=== PATIENT | female | born 1955 | race Caucasian/White ===

== ENCOUNTER → 2021-11-15 07:58 | Outpatient (CLI) | payer OTHER, SELFPAY ==
--- NOTE | ~2021-11-15 | US_ITS ---
EXAMINATION: US abdomen complete EXAM DATE: 11/15/2021 08:39 INDICATION: Epigastric and RUQ abdominal pain . TECHNIQUE: Multiple grayscale and Doppler images of the complete abdomen were obtained (by a technolo gist who performed the scan) and subsequently reviewed. Comparison is made to prior examination from 07/10/2014. FINDINGS: The abdominal aorta is normal in caliber. Visualized portion IVC is patent. The pancreatic head a nd body are normal in appearance. The pancreatic tail is not visualized. There is echogenic liver parenchyma, hepatic steatosis. There are no focal liver lesions identified. There is no evidence of intrahepatic biliary duct dilation. Portal venous flow was seen in the he patopedal, normal direction and has normal Doppler waveform. Common bile duct measures 4 mm, which is normal. The gallbladder wall is normal in thickness, with ex pected amount of distention. No sonographic evidence of pericholecystic fluid. Probable small poorl y calcified cholelithiasis. Technologist performing exam reports patient did not demonstrate sonogra phic Melo's sign. Please note that this sign is less reliable in patients who have received pain m edication. Right kidney: There is normal contour and echogenicity. It measures 9.8 x 3.8 x 4.9 centimeters. T here are no focal renal lesions identified. There is no hydronephrosis. Left kidney: There is normal contour and echogenicity. It measures 10.9 x 4.7 x 4.5 centimeters. T here are no focal renal lesions identified. There is no hydronephrosis. The spleen measures 8.4 centimeters and is morphologically normal. IMPRESSION: 1. Hepatic steatosis. 2. Probable cholelithiasis. Reviewed, dictated and finalized at location A. STICS SOLUTION MANAGER
== END ==
PROVIDERS: PCP Family Medicine Adolescent Medicine; Visit Provider Family Medicine Adolescent Medicine
DX: R10.13 Epigastric pain (principal); K76.0 Fatty (change of) liver, not elsewhere classified
CPT/HCPCS: 76700

== ENCOUNTER 2021-11-23 08:07 | Outpatient (CLI) | payer OTHER, SELFPAY ==
--- NOTE | ~2021-11-23 | NM_ITS ---
EXAMINATION: NM hepatobiliary wo pharm DATE: 11/23/2021 13:31 INDICATION: Right upper quadrant abdominal pain COMPARISON: Ultrasound dated 11/07/2021 TECHNIQUE: 5.2 mCi Tc-99m mebrofenin (Choletec) was administered intravenously. Scintigraphic images of the abdomen were obtained for one hour. At the 1 hour time point, the patient drank 8 oz Ensure, and imaging was continued for 60 minutes. Gallbladder ejection fraction was calculated by the technol ogist. FINDINGS: There is normal clearance of radiotracer from the blood pool. There is homogeneous tracer u ptake by the liver. Activity progresses to the bowel and gallbladder. The gallbladder ejection fract ion (GBEF) is 60%. Note that with this technique, normal GBEF >= 33%. IMPRESSION: 1. Normal hepatobiliary scan Reviewed, dictated and finalized at location B. WIRE PHOTO OPERATOR
== END 2021-11-23 08:08 | disposition home or self-care (01) ==
LOC: ANHIMG 08:22
PROVIDERS: PCP Family Medicine Adolescent Medicine; Visit Provider Family Medicine Adolescent Medicine
DX: R10.11 Right upper quadrant pain (principal)
CPT/HCPCS: 78226; A9537

== ENCOUNTER 2022-06-22 00:23 | Day surgery (SDC) | payer OTHER, SELFPAY ==
[2022-06-09 11:05] VITALS: BMI 22.4
--- NOTE | 2022-06-21 13:10 | WPDANESEPPF ---
Anes - Initial Pre Proc Eval Procedure: Operation Date: 06/22/22 11:30 Proposed Procedures p Screening Colonoscopy - Zan Montanez MD Date/Time: 06/21/22 13:10 Surgeon: Zan Montanez MD Pre Op Diagnosis: family hx colon ca Patient Data Age: 66 Gender: F Height: 1.7 m Weight: 65 kg Allergies Allergy/AdvReac Type Severity Reaction Status Date / Time codeine AdvReac Mild Nausea and Verified 06/22/22 11:19 Vomiting Home Medications Medication Instructions Recorded Confirmed Type aspirin 81 mg tablet,delayed 81 mg PO DAILY 03/20/22 06/22/22 History release (Adult Aspirin Regimen) fenofibrate 160 mg tablet See Rx Instructions .Route 04/20/22 06/22/22 Rx .COMPLEX #90 tabs lisinopril 20 See Rx Instructions .Route 04/20/22 06/22/22 Rx mg-hydrochlorothiazide 25 mg tablet .COMPLEX #90 tabs meloxicam 15 mg tablet 15 mg PO DAILY #90 tabs 04/20/22 06/22/22 Rx zolpidem 10 mg tablet 10 mg PO QHS #90 tabs 04/24/22 06/22/22 Rx atorvastatin 20 mg tablet 20 mg PO DAILY #90 tabs 05/23/22 06/22/22 Rx sod picosulf 10 mg-magnes 3.5 160 ml PO DAILY 2 doses #320 mL 06/08/22 06/22/22 Rx gram-citric 12 gram/160 mL oral solution (Clenpiq) oxybutynin chloride 5 mg 5 mg PO DAILY #30 tabs 06/21/22 06/22/22 Rx tablet,extended release 24 hr Patient hx anesthesia problems: none Family hx anesthesia problems: none Results Review: All pre-operative results and documents have been reviewed as part of the pre-operative evaluation. [facility] Past Medical History Medical History (Updated 06/22/22 @ 11:27 by Zan Montanez MD) Anxiety Hepatic steatosis Hypertension Insomnia Mixed hyperlipidemia Scoliosis Seizure Surgical History Surgical History History of tubal ligation Family History Family History Mother Heart disease Carcinoma of colon Hypertension Hyperlipidemia Father Heart disease Congestive heart failure Sibling Hypertension Hyperlipidemia Social History Social History (Updated 05/30/22 @ 09:41 by Gisel Calvin MA) Smoking packs per day: 2 Smoking cigarettes per day: 40.0 Years smoked: 30 Smoking pack-years: 60.00 Smoking status: Former smoker Tobacco type: cigarettes Second hand tobacco smoke exposure: No Smoking end date: 11/19/04 Alcohol intake: current Drinks per week: 1 Alcohol use details: Rarely Substance use: never Substance use type: does not use Living arrangements: with family Gender identity (if verbalized by the patient): Female Sexual Orientation (if Verbalized by the Patient): Straight or Heterosexual Spiritual care concerns: No Agree to blood products: Yes Anes - Eval Final PreProcedure Day of Procedure 06/21/22 13:10 Patient weight: normal Heart: regular rate and rhythm Lungs: clear to auscultation Airway: Mallampati scale class II Neurological: alert and oriented Last oral intake: >/= 8 hours ASA classification: III Emergent: no Anesthetic plan: proceed Anesthesia type and monitoring: general GIVS and standard monitoring Results Review: All pre-operative results and documents have been reviewed as part of the pre-operative evaluation. Informed Consent: The patient's anesthetic plan and its attendant risks and benefits were discussed with the patient/family/POA. Questions were solicited and answers provided to the satisfaction of the patient/family/POA.
[2022-06-22 11:20] VITALS: BP 129/70; PULSE 50; RESP 18; TEMP 36.6; O2SAT 95; BMI 22.1
--- NOTE | 2022-06-22 11:26 | PM.IMHP ---
H&P: HPI History of Present Illness Date/Time: 06/22/22 11:26 Chief Complaint: Neoplasia screening. Narrative: This is a 66-year-old white female patient presents for screening colonoscopy. Patient's current weight appetite bowel movements are normal. She denies abdominal pain. Patient has had no bleeding. Family history is significant that her mother had colon cancer. Patient reports colonoscopy 2010 was unremarkable. Patient presents today for screening colonoscopy. Review of Systems Review of Systems: Review of systems noncontributory. [facility] Past Medical History Medical History (Updated 06/22/22 @ 11:27 by Zan Montanez MD) Anxiety Hepatic steatosis Hypertension Insomnia Mixed hyperlipidemia Scoliosis Seizure Surgical History Surgical History History of tubal ligation Family History Family History Mother Heart disease Carcinoma of colon Hypertension Hyperlipidemia Father Heart disease Congestive heart failure Sibling Hypertension Hyperlipidemia Social History Social History (Updated 05/30/22 @ 09:41 by Gisel Calvin MA) Smoking packs per day: 2 Smoking cigarettes per day: 40.0 Years smoked: 30 Smoking pack-years: 60.00 Smoking status: Former smoker Tobacco type: cigarettes Second hand tobacco smoke exposure: No Smoking end date: 11/19/04 Alcohol intake: current Drinks per week: 1 Alcohol use details: Rarely Substance use: never Substance use type: does not use Living arrangements: with family Gender identity (if verbalized by the patient): Female Sexual Orientation (if Verbalized by the Patient): Straight or Heterosexual Spiritual care concerns: No Agree to blood products: Yes Meds Home Medications and Allergies Home Medications Medication Instructions Recorded Confirmed Type aspirin 81 mg tablet,delayed 81 mg PO DAILY 03/20/22 06/22/22 History release (Adult Aspirin Regimen) fenofibrate 160 mg tablet See Rx Instructions .Route 04/20/22 06/22/22 Rx .COMPLEX #90 tabs lisinopril 20 See Rx Instructions .Route 04/20/22 06/22/22 Rx mg-hydrochlorothiazide 25 mg tablet .COMPLEX #90 tabs meloxicam 15 mg tablet 15 mg PO DAILY #90 tabs 04/20/22 06/22/22 Rx zolpidem 10 mg tablet 10 mg PO QHS #90 tabs 04/24/22 06/22/22 Rx atorvastatin 20 mg tablet 20 mg PO DAILY #90 tabs 05/23/22 06/22/22 Rx sod picosulf 10 mg-magnes 3.5 160 ml PO DAILY 2 doses #320 mL 06/08/22 06/22/22 Rx gram-citric 12 gram/160 mL oral solution (Clenpiq) oxybutynin chloride 5 mg 5 mg PO DAILY #30 tabs 06/21/22 06/22/22 Rx tablet,extended release 24 hr Allergies Allergy/AdvReac Type Severity Reaction Status Date / Time codeine AdvReac Mild Nausea and Verified 06/22/22 11:19 Vomiting Vital Signs Vital Signs - 24 hr 06/22/22 11:20 Temperature 97.8 F Pulse Rate 50 L Respiratory Rate 18 Blood Pressure 129/70 Pulse Oximetry 95 Oxygen Delivery Room Air Exam Narrative: Physical exam reveals patient to be alert. Vital signs stable. HEENT exam is unremarkable. Patient is anicteric. Lungs are clear to auscultation and percussion. Heart is without murmur or extra sounds. Abdominal exam is soft. Bowel sounds are present nontender with no organomegaly. Digital external rectal exam is normal. Assessment and Plan Assessment and plan (1) Family history of colon cancer in mother: Code(s): Z80.0 - Family history of malignant neoplasm of digestive organs Status: Acute Assessment and Plan: Patient's mother had colon cancer. For this reason screening colonoscopy is recommended now and intervals in the future.
[2022-06-22] MEDS: LACTATED RINGERS 1,000 ML 150 ML IV CONT (11:32)
[2022-06-22 12:51] VITALS: BP 97/61; PULSE 64; RESP 28; O2SAT 100
[2022-06-22 13:01] VITALS: BP 108/71; PULSE 52; RESP 14; O2SAT 100
[2022-06-22 13:11] VITALS: BP 120/63; PULSE 51; RESP 19; O2SAT 100
== END 2022-06-22 13:28 | disposition home or self-care (01) ==
PROVIDERS: PCP Family Medicine Adolescent Medicine; Visit Provider Internal Medicine Gastroenterology
PROC: 0DJD8ZZ Inspection of Lower Intestinal Tract, Via Natural or Artificial Opening Endoscopic (ICD-10-PCS; CPT 45378; principal; 2022-06-22 11:30)
DX: Z12.11 Encounter for screening for malignant neoplasm of colon (principal); K64.8 Other hemorrhoids; K57.30 Diverticulosis of large intestine without perforation or abscess without bleeding; Z80.0 Family history of malignant neoplasm of digestive organs; I10 Essential (primary) hypertension; E78.2 Mixed hyperlipidemia; K76.0 Fatty (change of) liver, not elsewhere classified; Z87.891 Personal history of nicotine dependence; Z79.82 Long term (current) use of aspirin
CPT/HCPCS: G0105; J2704; J7120

== ENCOUNTER → 2023-09-25 11:11 | Outpatient (CLI) | payer OTHER, SELFPAY ==
--- NOTE | ~2023-09-25 | DEXA_ITS ---
Bone Density Report Name: VINCENT CAMPBELL Age: 67 Sex: Female Ethnicity: White Date of : 1955 Indication: postmenopausal; screening for osteoporosis; height loss; Referring Provider: CAROLE CASE Study: Bone densitometry was performed. Exam Date: September 25, 2023 Accession number: [id number] Bone Density: Region BMD T-score Z-score Classification AP Spine (L1, L2, L3) 0.753 -2.4 -0.6 Osteopenia Femoral Neck (Left) 0.605 -2.2 -0.6 Osteopenia Total Hip (Left) 0.709 -1.9 -0.6 Osteopenia Femoral Neck (Right) 0.545 -2.7 -1.1 Osteoporosis Total Hip (Right) 0.685 -2.1 -0.8 Osteopenia Total Hip Mean 0.697 -2.0 -0.7 Osteopenia World Health Organization criteria for BMD impression classify patients as: Normal (T-score at or above -1.0), Osteopenia (T-score between -1.0 and -2.5), or Osteoporosis (T-score at or below -2.5). 10-year Fracture Risk: FRAX not reported because: Some T-score for Spine Total or Hip Total or Femoral Neck at or below -2.5 Clinical Information Provided by Patient: Has used the following medications: Vitamin D, Calcium Patient maximum height was 66.5 Menopause Age: 58 Drinks caffeinated beverages Onset of menses at age 15 Number of children 3 Impression: The patient has osteoporosis, based on the Right Femoral Neck T-score. Discussion: INCREASED RISK OF FRACTURE. BONE DENSITY IS UNDESIRABLY LOW AT ONE OR MORE SKELETAL SITES, CONSISTENT WITH POSTMENOPAUSAL OSTEOPOROSIS. This patient's lowest T-score meets the World Health Organization's (WHO) criteria for osteoporosis at one or more sites (T-score -2.5 or below). In untreated patients, the risk of osteoporotic fracture increases approximately two-fold for each 1.0 SD decrease in T-score. Low bone density is not the only risk factor for fracture; also consider factors such as patient's age, frailty or poor health, risk of falling, risk of injury, previous osteoporotic fracture, family history of osteoporosis, cigarette smoking, low body weight, etc. Not everyone with low bone mineral density has osteoporosis; osteomalacia and other metabolic bone disorders should also be considered. Patients who have osteoporosis should be evaluated for specific diseases and conditions (secondary causes) that may cause or contribute to bone loss. The [place] Association of Clinical Endocrinologists (AACE) and National Osteoporosis Foundation (NOF) recommend pharmacologic intervention for all postmenopausal women whose T-score is in this range. The patient should follow a healthful lifestyle (good nutrition with adequate calcium and vitamin D, and appropriate weight-bearing exercise). Follow-Up: Consider a repeat BMD and Vertebral Fracture Assessment (VFA) exam in 2 years or sooner if medically necessary, to reassess this patient's status. Rep
== END ==
PROVIDERS: PCP Family Medicine Adolescent Medicine; Visit Provider Nurse Practitioner Family
DX: M81.0 Age-related osteoporosis without current pathological fracture (principal); N95.0 Postmenopausal bleeding
CPT/HCPCS: 77080

== ENCOUNTER 2024-01-03 06:33 | Observation (INO) | payer OTHER, SELFPAY ==
[2024-01-03] VITALS (12 sets, daily range): BP systolic 104–136; BP diastolic 56–88; PULSE 58–76; RESP 13–20; TEMP 36.1–36.9; O2SAT 95–100; BMI 23.0
--- NOTE | ~2024-01-03 | MR_ITS ---
EXAMINATION: MR brain/brain stem wo/w con DATE: 01/03/2024 16:35 INDICATION: Dizziness. Right leg numbness. TECHNIQUE: Magnetic resonance imaging (MRI) of the brain and brainstem was performed without and with 12 mL MultiHance intravenous contrast. COMPARISON: Head CT 01/03/2024 FINDINGS: There is no intracranial hemorrhage, acute infarction, or abnormal intracranial mass lesion . The ventricles are normal in size. There is mild mucosal thickening in the ethmoid sinuses. The mas toid air cells are normal. There are likely changes of ocular lens replacement surgeries. IMPRESSION: 1. Normal brain. Reviewed, dictated and finalized at location A. IRING MACHINE OPERATOR IMPRESSION: 1. Normal brain.
--- NOTE | ~2024-01-03 | XR_ITS ---
EXAMINATION: XR chest 2V DATE: 01/03/2024 08:47 INDICATION: Dizziness. TECHNIQUE: Frontal and lateral views of the chest were obtained. COMPARISON: None. FINDINGS: There is mild atelectasis in left upper lobe. No pleural effusion or pneumothorax. The hear t size is normal. IMPRESSION: 1. Mild atelectasis in left upper lobe. Reviewed, dictated and finalized at location A. [place] OPERATIONS MANAGER
--- NOTE | ~2024-01-03 | CT_ITS ---
EXAMINATION: CTA brain carotid DATE: 01/03/2024 08:49 INDICATION: Dizziness. TECHNIQUE: Computed tomographic angiography (CTA) of the head was performed without and with 100 mL O mnipaque-350 intravenous contrast. CTA of the neck was performed with intravenous contrast. Automated exposure control and iterative reconstruction technique were employed. The dose-length product was 1 576.91 mGy-cm. Maximum intensity projection and volume rendered 3D-reconstructions were created by fabian kline technologist on a separate workstation. COMPARISON: None. FINDINGS: HEAD CTA: There is no intracranial hemorrhage, acute infarction, or abnormal intracranial mass lesion . The ventricles are normal in size. There are likely changes of ocular lens replacement surgeries. T here is mild mucosal thickening in the ethmoid sinuses. The mastoid air cells are normal. Left verteb ral artery is dominant. There is no significant stenosis of basilar artery or the posterior cerebral arteries. There is no significant stenosis of the intracranial internal carotid arteries or anterior or middle cerebral arteries. Anterior communicating artery is normal. The posterior communicating art eries are normal. There is no aneurysm. NECK CTA: There is mild scarring at the lung apices. There are no pathologically enlarged lymph nodes . There is no significant stenosis of the vertebral arteries. There is plaque in the proximal interna l carotid arteries. There are undulations of the gaitan of the internal carotid arteries and left vert ebral artery, consistent with fibromuscular dysplasia. There is 0% stenosis of the proximal right int ernal carotid artery relative to normal distal artery lumen diameter (NASCET criteria). There is 0% s tenosis of the proximal left internal carotid artery relative to normal distal artery lumen diameter. There is severe cervical spondylosis. IMPRESSION: 1. Normal brain. No aneurysm or significant intracranial arterial stenosis. 2. 0% stenosis of the proximal internal carotid arteries relative to normal distal artery lumen diame ters (NASCET criteria). 3. 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 Reviewed, dictated and finalized at location A. MAKING OPERATOR IMPRESSION: 1. Normal brain. No aneurysm or significant intracranial arterial stenosis. 2. 0% stenosis of the proximal internal carotid arteries relative to normal dis zen artery lumen diameters (NASCET criteria). 3. Fibromuscular dysplasia involving the internal carotid arteries and left floyd tebral artery.
--- NOTE | 2024-01-03 07:11 | ED.DIZZY ---
HPI - Dizziness General Chief Complaint: Dizziness Stated Complaint: dizzy Time Seen by Provider: 01/03/24 06:59 History of Present Illness HPI Narrative: Patient is a 68-year-old female with history of hypertension, hyperlipidemia here today with dizziness. She states that she woke up to go to the bathroom around 4:00 a.m. this morning, noted that when she got out of bed she felt significantly dizzy. She describes this as feeling unsteady on her feet and feeling as though she may fall. Dizziness feels much worse when she moves her head quickly or changes position quickly and improves significantly when she sits at rest with her eyes closed. She additionally notes that it feels like the floor is moving when she tries to walk. This is occasionally made her feel as though she may pass out. She has associated nausea. Denies any chest pain. She denies any numbness or weakness in her upper lower extremities. She notes that she went to bed feeling normal around 11:00 p.m.. No prior history of stroke, cardiac disease however she does have a family history of both. No history of vertigo. Related Data Home Medications Medication Instructions Recorded Confirmed aspirin 81 mg tablet,delayed 81 mg PO DAILY 03/20/22 06/11/23 release (Adult Aspirin Regimen) Allergies Allergy/AdvReac Type Severity Reaction Status Date / Time codeine AdvReac Mild Nausea and Verified 06/11/23 08:18 Vomiting Review of Systems Review of Systems: All systems reviewed & are unremarkable except as noted in HPI and below PMFSH Past Medical History Medical History (Updated 01/03/24 @ 10:25 by Arely Sorenson MD) Anxiety Hepatic steatosis Hypertension Insomnia Mixed hyperlipidemia Scoliosis Seizure Surgical History Surgical History (Updated 06/11/23 @ 09:11 by Radha Raza APRN) History of loop electrical excision procedure (LEEP) History of tubal ligation Family History Family History Mother Heart disease Carcinoma of colon Hypertension Hyperlipidemia Father Heart disease Congestive heart failure Sibling Hypertension Hyperlipidemia Primary pancreatic cancer with metastasis to other site Social History Social History Smoking packs per day: 2 Smoking cigarettes per day: 40.0 Years smoked: 30 Smoking pack-years: 60.00 Smoking status: Former smoker Tobacco type: cigarettes Second hand tobacco smoke exposure: No Smoking end date: 11/19/04 Alcohol intake: current Drinks per week: 1 Alcohol use details: Rarely Substance use: never Substance use type: does not use Lack of Transportation: No Current Housing: I Have Housing Concerned About Future Housing: No Difficulty Paying Gas/Electric Bills: No Difficulty Paying for Meds: No Currently Unemployed: No Education: High School Diploma/GED Difficulty w/ Childcare or Family Care: No Living arrangements: with family Occupation/Education: retired Gender identity (if verbalized by the patient): Female Sexual Orientation (if Verbalized by the Patient): Straight or Heterosexual Spiritual care concerns: No Agree to blood products: Yes Exam Narrative: GENERAL: Well-appearing, well-nourished, and in no acute distress. HEAD: Normocephalic, atraumatic. EYES: PERRLA and EOMI. ENT: Nares clear. Mucous membranes moist. NECK: Supple. CHEST: Clear to auscultation. No respiratory distress. HEART: Regular rate and rhythm. Normal peripheral pulses. ABDOMEN: Soft, nontender, nondistended. EXTREMITIES: Normal range of motion. No edema. SKIN: Warm, dry, no rash. NEURO: Alert and oriented x3. Faint horizontal nystagmus. No upper or lower extremity drift. No facial droop. No sensory deficits over the face. No sensory deficits over the upper extremities. She does have subjective numbness over the right leg compar
--- NOTE | 2024-01-03 07:14 | ECG_ITS ---
Measurements Intervals [place] Rate: 52 P: 81 NH: 177 QRS: 11 QRSD: 98 T: 18 QT: 453 QTc: 422 Interpretive Statements SINUS BRADYCARDIA NONSPECIFIC ST & T-WAVE ABNORMALITY NO PREVIOUS ECG AVAILABLE FOR COMPARISON Electronically Signed On 01-03-2024 12:41:09 [employer] MAN by Evelio Chairez M.D.
[2024-01-03 08:29] LABS: Basophils Percent Auto 0.4 % (0.2-1.2); Eosinophils Absolute Auto 0.2 K/mm3 (0-0.3); Eosinophils Percent Auto 2.1 % (0-4.4); Hematocrit 37.1 % (37.0-47.0); Hemoglobin 12.2 g/dL (12.0-15.0); Immature Granulocyte Absolute 0.03 K/mm3 (0.00-0.031); Immature Granulocyte Percent A 0.3 % (0-0.5); Lymphocytes Absolute Auto 1.45 K/mm3 (0.9-3.2); Lymphocytes Percent Auto 13.1 % (18.3-44.2); Mean Corpuscular HGB Conc 32.9 g/dl (32-36); Mean Corpuscular Volume 88.1 fl (80-100); Mean Platelet Volume 10.4 fl (7.4-10.4); Monocytes Absolute Auto 0.8 K/mm3 (0.1-0.6); Neutrophils Absolute Auto 8.5 K/mm3 (1.3-6.7); Neutrophils Percent Auto 77.1 % (45.5-73.1); Platelet Count Result 332 k/mm3 (150-375); Red Blood Count 4.21 M/mm3 (4.2-5.4); Red Cell Distribution Width 13.7 % (11.5-14.5); White Blood Count 11.1 K/mm3 (4.5-10.0)
[2024-01-03 08:33] LABS: Estimated CRCL calculation 38 ml/min; Estimated Glomerular Filt Rate 45
[2024-01-03 08:41] LABS: INR 0.9; Prothrombin Time 12.8 Seconds (11.1-14.7)
[2024-01-03 08:44] LABS: Alanine Aminotransferase 23 U/L (6-35); Albumin Level 4.1 g/dL (3.5-5.1); Alkaline Phosphatase 55 U/L (38-126); Anion Gap 7 mmol/L (8-16); Aspartate Amino Transferase 27 U/L (14-36); Bilirubin,Total 0.5 mg/dL (0.2-1.3); Blood Urea Nitrogen 24 mg/dL (7-17); Calcium 10.1 mg/dL (8.4-10.2); Carbon Dioxide 26 mmol/L (22-30); Chloride 106 mmol/L (98-107); Estimated CRCL calculation 41 ml/min; Estimated Glomerular Filt Rate 50; Glucose 121 mg/dL (65-110); Partial Thromboplastin Time 21.3 SECONDS (22.3-36.8); Potassium 3.5 mmol/L (3.4-5.0); Sodium 139 mmol/L (137-145)
[2024-01-03 08:56] LABS: Troponin I < 0.012 ng/mL (0.000-0.034)
[2024-01-03] MEDS: SODIUM CHLORIDE 0.9% IV 1,000 ML 999 ML IV CONT (08:58)
[2024-01-03] MEDS: MECLIZINE HCL 25 MG TABLET PO ×2 (08:59→18:10)
[2024-01-03] MEDS: ONDANSETRON INJ 4 MG/2 ML VIAL IV PUSH (08:59)
[2024-01-03 09:05] LABS: Appearance Urine Turbid (Clear); Bacteria Urine None Seen /hpf; Bilirubin Urine Negative (Negative); Blood Urine Negative (Negative); Color Urine Yellow (Yellow); Glucose Urine UA Negative (Negative); Ketones Urine Negative (Negative); Leukocyte Esterase Ur Negative LEU/UL (Negative); Nitrate Urine Negative (Negative); Non Pathogenic Casts 0-2; Protein Urine Negative (Negative); RBC Urine 0-2 /hpf (0-2); Specific Grav Ur 1.024 (1.001-1.035); Squamous Epithelial Cell Urine None seen /hpf (Few); Urobilinogen Urine 0.2 mg/dL (<2.0); WBC Urine 0-5 /hpf
[2024-01-03 09:06] LABS: Add Urine Microscopic? YES
[2024-01-03] MEDS: ACETAMINOPHEN 500 MG TABLET 1000 MG PO (09:46)
[2024-01-03 10:10] LABS: Influenza A QL RT-PCR Negative (Negative); Influenza B QL RT-PCR Negative (Negative); RSV RNA, RT-PCR Negative (Negative); SARS-CoV-2 RNA PCR Negative (Negative)
--- NOTE | 2024-01-03 12:24 | PC.NURSE ---
REJI Brooke via Telephone.
--- NOTE | 2024-01-03 12:32 | PC.NURSE ---
pt aware of bed at 315-2 and nurse Mendy.
--- NOTE | 2024-01-03 12:35 | PC.NURSE ---
This patient, Regine Abdalla, was admitted to [facility] Surg Room 315-02. Patient/family oriented to hospital policies and general routines including ID bracelet, bed and alarms, visiting hours, pain management, procedures, bathroom and other care routines, personal items, smoking policy, room service/diet, and visiting hours. Information on how to activate the Rapid Response Team has been discussed. Patient/Family are encouraged to report perceived risks to care and to ask questions if they do not understand what they are told or what they should do.
--- NOTE | 2024-01-03 14:48 | PM.IMHP ---
H&P: HPI History of Present Illness Date/Time: 01/03/24 15:00 Chief Complaint: Dizziness. Narrative: This is a 68-year-old female with hypertension and hyperlipidemia presented to the emergency department via private vehicle from home for evaluation of dizziness. The patient provides the following history. She was in her usual state of health when she went to bed last night. At about 04:00 she got up to use the restroom and when she stood up she felt extremely dizzy with reports that she felt very unsteady on her feet and is though she may fall. It felt as though the floor was moving when she tries to walk. Symptoms are worse with movement and really any position changes. They improve somewhat when sitting or lying down with eyes closed. Associated symptoms include pretty significant nausea but no vomiting and paresthesias in the right foot extending to just above the right ankle. At the time my evaluation her symptoms had improved significantly but she still feels a bit lightheaded. She denies visual changes, facial droop, difficulty speaking and swallowing, focal weakness, and paresthesias. No fever, chills, sweats, or recent cold or flu symptoms. She also denies chest pain, palpitations, sensations of racing heart, fluttering, shortness of breath, and edema. CTA of the head and neck showed no significant findings but did note fibromuscular dysplasia involving the internal carotid arteries and left vertebral artery. She is being admitted in this setting for closer monitoring and further workup. Review of Systems Review of Systems: Twelve systems were reviewed and are negative except for as per HPI. [facility] Past Medical History Medical History Anxiety Hepatic steatosis Hypertension Insomnia Mixed hyperlipidemia Scoliosis Seizure Surgical History Surgical History History of loop electrical excision procedure (LEEP) History of tubal ligation Family History Family History Mother Heart disease Hyperlipidemia Carcinoma of colon Hypertension Father Congestive heart failure Heart disease Sibling Primary pancreatic cancer with metastasis to other site Hyperlipidemia Hypertension Breast cancer Social History Social History (Updated 01/04/24 @ 00:04 by Elayne Meza PA-C) Social History: Surrogate medical decision maker: Syd Abdalla, spouse. Code status: Full code. Smoking packs per day: 2 Smoking cigarettes per day: 40.0 Years smoked: 30 Smoking pack-years: 60.00 Smoking status: Former smoker Tobacco type: cigarettes Second hand tobacco smoke exposure: No Smoking end date: 11/19/04 Alcohol intake: never Drinks per week: 1 Alcohol use details: Rarely Substance use: never Substance use type: does not use Do You Feel Safe in your Home?: Yes Lack of Transportation: No Lack of Food: Never True Current Housing: I Have Housing Concerned About Future Housing: No Difficulty Paying Gas/Electric Bills: No Difficulty Paying for Meds: No Currently Unemployed: No Education: High School Diploma/GED Difficulty w/ Childcare or Family Care: No Living arrangements: with family Occupation/Education: retired Spiritual care concerns: No Agree to blood products: Yes Meds Home Medications and Allergies Home Medications Medication Instructions Recorded Confirmed Type aspirin 81 mg tablet,delayed 81 mg PO HS 03/20/22 01/03/24 History release (Adult Aspirin Regimen) triamcinolone acetonide 0.1 % 1 applic topical BID PRN rash #80 10/14/23 01/03/24 Rx topical ointment grams zolpidem 10 mg tablet 10 mg PO QHS #90 tabs 10/17/23 01/03/24 Rx atorvastatin 20 mg tablet 20 mg PO HS 01/03/24 01/03/24 History fenofibrate 160 mg tablet 160 mg PO HS 01/03/24 01/03/24 History lisinopril 20 1 tablet
[2024-01-03] MEDS: ZOLPIDEM TARTRATE (*CRX) 5 MG TABLET 10 MG PO (20:28)
[2024-01-04] VITALS (11 sets, daily range): BP systolic 113–136; BP diastolic 58–88; PULSE 55–72; RESP 14–16; TEMP 36.4–37.3; O2SAT 94–99
--- NOTE | 2024-01-04 | ECHO_ITS ---
Patient Info Name: Regine Abdalla Age: 68 years : 1955 Gender: Female Ht: 66 in Wt: 142 lbs BSA: 1.74 m2 HR: 64 bpm BP: 122 / 88 mmHg Heart Rhythm: Sinus Rhythm Technical Quality: Good Exam Date: 01/04/2024 10:37 AM Exam Location: Echo Lab Patient Status: Outpatient Admit Date: 01/03/2024 Staff Ordering Physician: Elayne Meza PA-C Top Polisher: Estefani Garica RDCS Attending Provider: Mu Ohara MD Referring Physician: Derrick CUEVAS; Exam Type: CA echo doppler w bubble study Study Info Indications - intermittent bradycardia, htn, hld, dizzy Complete two-dimensional, color flow and Doppler transthoracic echocardiogram is performed. Summary 1. Complete two-dimensional, color flow and Doppler transthoracic echocardiogram is performed. 2. Essentially unremarkable 2D/Doppler echocardiogram. 3. Agitated saline contrast study negative for shunt. Left Ventricle Left ventricular chamber dimension is normal. Left ventricular systolic function is normal, estimated at 60-65%. The left ventricular diastolic function is normal. Right Ventricle Right ventricular chamber dimension is normal. Left Atria Left atrial chamber dimension is normal. Right Atria Right atrial chamber dimension is normal. Aortic Valve The aortic valve is normal. Pulmonic Valve The pulmonic valve is normal. Mitral Valve The mitral valve has normal leaflets. Tricuspid Valve The tricuspid valve leaflets are normal. Pericardium/Pleural The pericardium appears normal. Aorta The aortic root size at the sinus of Valsalva is normal. Left Ventricular Outflow Tract Name Value Normal LVOT 2D LVOT Diameter 2.0 cm LVOT Doppler LVOT Peak Gradient 3 mmHg LVOT Mean Gradient 1 mmHg LVOT VTI 19 cm LVOT VTI/AV VTI Ratio 0.7 LVOT Stroke Volume 59 ml LVOT CO 3.4 l/min LVOT CI 1.9 l/min/m2 Pulmonic Valve Name Value Normal RVOT Doppler RVOT Peak Gradient 2 mmHg PV Doppler PV Peak Gradient 4 mmHg Mitral Valve Name Value Normal MV Doppler MV Decel [place] 297 cm/s2 MV PHT 74 ms MV Area (PHT) 3.0 cm2 4.0-5.0 MV Diastolic Function
--- NOTE | 2024-01-04 00:22 | PC.NURSE ---
This RN went into the pt room to administer 2100 medications. The pt and daughter, at bedside, stated the patient took her home medications, other than the ambien. This RN educated the patient and family on importance of staff administering all medications and to remove all home meds from the room. The patient took 25mg lisinopril, 81 mg Aspirin, 20mg Lipitor, 160mg Fenofibrate, 15mg Meloxicam, and calcium. Provider notified, and daughter took home medications with her home.
[2024-01-04 06:44] LABS: Hematocrit 33.6 % (37.0-47.0); Hemoglobin 11.1 g/dL (12.0-15.0); Mean Corpuscular Hemoglobin 29.2 pg (26-34); Mean Corpuscular Volume 88.4 fl (80-100); Mean Platelet Volume 10.6 fl (7.4-10.4); Platelet Count Result 314 k/mm3 (150-375); Red Cell Distribution Width 13.7 % (11.5-14.5); White Blood Count 6.2 K/mm3 (4.5-10.0)
[2024-01-04 06:56] LABS: Anion Gap 3 mmol/L (8-16); Blood Urea Nitrogen 19 mg/dL (7-17); Calcium 9.5 mg/dL (8.4-10.2); Carbon Dioxide 26 mmol/L (22-30); Chloride 109 mmol/L (98-107); Cholesterol 124 mg/dL (0-200); Estimated CRCL calculation 45 ml/min; Estimated Glomerular Filt Rate 55; Glucose 105 mg/dL (65-110); HDL Direct 52 mg/dL; Potassium 3.8 mmol/L (3.4-5.0); Sodium 138 mmol/L (137-145); Triglycerides 89 mg/dL (<150)
[2024-01-04 07:08] LABS: LDL Cholesterol Direct 53 mg/dL
[2024-01-04] MEDS: MECLIZINE HCL 25 MG TABLET PO (08:45)
[2024-01-04] MEDS: ACETAMINOPHEN 325 MG TABLET 650 MG PO ×2 (08:45→21:39)
--- NOTE | 2024-01-04 09:20 | WPDNEURCNPN ---
Assessment and Plan Assessment and plan (1) Vertigo: Code(s): R42 - Dizziness and giddiness Status: Acute (2) Paresthesia of right foot: Code(s): R20.2 - Paresthesia of skin Status: Acute (3) Fibromuscular dysplasia of cervicocranial artery: Code(s): I77.3 - Arterial fibromuscular dysplasia Status: Acute (4) Vitamin B12 deficiency: Code(s): E53.8 - Deficiency of other specified B group vitamins Status: Acute Plan Regine Abdalla is a 68 year old female with a history of HTN, HLD, presenting for evaluation of dizziness. Additional symptoms included RLE paresthesias and nausea. MRI brain is negative for central cause. CTA brain/carotid shows fibromuscular dysplasia of bilateral ICA and L vertebral artery, could possibly contributing to symptoms as well but this is a chronic entity and patient's symptoms were more acute. She was noted to be deficient in Vitamin B12 which could also be exacerbating her symptoms. Also considering BPPV. -Recommend echocardiogram with bubble study to evaluate for cardiogenic cause of dizziness - Start B12 supplement 1000mcg daily - Outpatient follow-up with vascular neurology for fibromuscular dysplasia - Continue Aspirin 81mg daily - Continue Lipitor 20mg daily - Recommend vestibular therapy for dizziness - Follow-up in [facility] Neurology clinic in about 6-8 weeks Consult date: 01/04/24 Reason for consult: Dizziness HPI: Regine Abdalla is a 68 year old female with a history of HTN, HLD, ?seizure presenting for evaluation of dizziness. Patient was in her usual state of health the night prior to admission when she went to bed. She woke up around 0400 on day of presentation and tried to use the bathroom. However when she stood up she felt extremity dizzy and unsteady on her feet. She felt as if the floor was moving when she tried to walk. Symptoms were worse with movement and any positional change. She felt like the symptoms improved when she sat down or lied down with her eyes closed. She had nausea as well as paraesthesias in the R ankle/foot. When she presented to [facility] ED her EKG showed sinus bradycardia. CT head was negative for any acute change. CTA brain/carotid showed fibromuscular dysplasia of bilateral ICA ans left vertebral artery. She takes Aspirin 81mg daily and Lipitor 20mg daily, as well as fenofibrate 160mg daily. She had her MRI brain done this morning which showed no acute changes and no cause for her symptoms. Labs were significant for low B12 of 221. UA was not concerning for infection. LDL is 54. Patient feels that her dizziness is better. She no longer has numbness in the R foot. She still feels 'loopy'. No double vision. No headache. Review of Systems Review of Systems: All systems reviewed & are unremarkable except as noted in HPI and below PMFSH Past Medical History Medical History Anxiety Hepatic steatosis Hypertension Insomnia Mixed hyperlipidemia Scoliosis Seizure Surgical History Surgical History History of loop electrical excision procedure (LEEP) History of tubal ligation Family History Family History Mother Heart disease Hyperlipidemia Carcinoma of colon Hypertension Father Congestive heart failure Heart disease Sibling Primary pancreatic cancer with metastasis to other site Hyperlipidemia Hypertension Breast cancer Social History Social History Social History: Surrogate medical decision maker: Syd Lianne, spouse. Code status: Full code. Smoking packs per day: 2 Smoking cigarettes per day: 40.0 Years smoked: 30 Smoking pack-years: 60.00 Smoking status: Former smoker Tobacco type: cigarettes Second hand tobacco smoke exposure: No Smoking end date: 11/19/04 Alcohol intake: nev
[2024-01-04] MEDS: CYANOCOBALAMIN INJ 1,000 MCG/ML VIAL 1000 MCG IM (12:29)
--- NOTE | 2024-01-04 14:28 | PM.DS ---
DS: Admitting Diagnosis Discharge Date 01/05/2024 Admitting Diagnosis Vertigo, paresthesia of right foot, fibro muscular dysplasia of cervical cranial artery, hypertension, mixed hyperlipidemia DS: Discharge Diagnosis Discharge Diagnosis (1) Vertigo: Code(s): R42 - Dizziness and giddiness Status: Acute Assessment and Plan: Improved with meclizine and resolved after vestibular exercises with PT (2) Paresthesia of right foot: Code(s): R20.2 - Paresthesia of skin Status: Acute Assessment and Plan: Resolved after vestibular exercises with PT (3) Fibromuscular dysplasia of cervicocranial artery: Code(s): I77.3 - Arterial fibromuscular dysplasia Status: Acute Assessment and Plan: Referral to vascular Neurology through primary care at discharge (4) Hypertension: Code(s): I10 - Essential (primary) hypertension Status: Acute Assessment and Plan: Stable and well controlled, continue home medications (5) Mixed hyperlipidemia: Code(s): E78.2 - Mixed hyperlipidemia Status: Acute Assessment and Plan: Continue home medications (6) Vitamin B12 deficiency: Code(s): E53.8 - Deficiency of other specified B group vitamins Status: Acute Assessment and Plan: IM supplementation today then daily oral supplementation ongoing DS: Summary Hospital Course Hospital Course: This is a 68-year-old female patient who was admitted to the hospital for TIA workup related to dizziness and right leg paresthesia. Patient reported sudden onset of symptoms worse with movements however she had near syncope due to severity of symptoms. Workup completed and Neurology consulted. Patient improved immediately after her vestibular maneuvers with PT. Meclizine had helped her symptoms prior to this tubular maneuvers. Echocardiogram with bubble study was normal, brain MRI was also normal. CTA showed fibromuscular dysplasia involving the internal carotid arteries and left vertebral artery for which Neurology recommended a vascular Neurology follow-up as an outpatient. I spoke to patient's primary care provider who would look into this referral as patient is on a managed Medicare plan and requires PCP referral for specialists. This morning patient further confirms complete resolution of symptoms. She was discharged home with prescription for vitamin B12 which was found to be low on presentation as well as meclizine in case she has return of similar symptoms. Status at Discharge Cognitive/behavioral status at discharge: Awake alert oriented and very pleasant Functional status at discharge: independent ambulation Overall status at discharge: patient is back to baseline Time Spent with Patient Time attestation: Total time spent providing and/or coordinating discharge services: 25 minutes Time spent: Less than 30 minutes Exam Narrative: GENERAL: Well-appearing, well-nourished, and in no acute distress. HEAD: Normocephalic, atraumatic. ENT:? Mucous membranes moist. CHEST: Clear to auscultation.? No respiratory distress. HEART: Regular rate and rhythm. ? Normal peripheral pulses. ABDOMEN: Soft, nontender, nondistended. EXTREMITIES: Normal range of motion. No peripheral edema. SKIN: Warm dry normal color NEURO: Alert and oriented x3. PSYCH: Normal mood and affect DS: Data Data Completed and Pending Completed studies during hospitalization: Chest x-ray, CTA head neck, brain MRI, echocardiogram with bubble study Labs on day of discharge: Labs from last 24 hours 01/04/24 06:30 WBC 6.2 RBC 3.80 L Hgb 11.1 L Hct 33.6 L MCV 88.4 MCH 29.2 MCHC 33.0 RDW 13.7 Plt Count 314 MPV 10.6 H Sodium 138 Potassium 3.8 Chloride 109 H Carbon Dioxide 26 Anion Gap 3 L BUN 19 H Creatinine 1.00 Estim Creat Clear Calc 45 Estimated GFR 55 L Glucose 105 Calcium 9.5 Magnesium 2.0 Triglycerides 89 Cholesterol 124 LDL Cho
--- NOTE | 2024-01-04 17:28 | PM.IMPN ---
Progress Note: A&P Assessment and Plan (1) Vertigo: Code(s): R42 - Dizziness and giddiness Status: Acute Assessment and Plan: Improved with meclizine and resolved after vestibular exercises with PT (2) Paresthesia of right foot: Code(s): R20.2 - Paresthesia of skin Status: Acute Assessment and Plan: Resolved after vestibular exercises with PT (3) Fibromuscular dysplasia of cervicocranial artery: Code(s): I77.3 - Arterial fibromuscular dysplasia Status: Acute Assessment and Plan: Referral to vascular Neurology through primary care at discharge (4) Hypertension: Code(s): I10 - Essential (primary) hypertension Status: Acute Assessment and Plan: Stable and well controlled, continue home medications (5) Mixed hyperlipidemia: Code(s): E78.2 - Mixed hyperlipidemia Status: Acute Assessment and Plan: Continue home medications (6) Vitamin B12 deficiency: Code(s): E53.8 - Deficiency of other specified B group vitamins Status: Acute Assessment and Plan: IM supplementation today then daily oral supplementation ongoing Time Spent With Patient Time with patient: 25 - 35 minutes Subjective Date/time seen: 01/04/24 17:28 Interval history: Patient admitted for severe dizziness near syncopal episode and right lower extremity paresthesias. Vitamin B12 was low so she received IM supplementation and daily oral supplement started. Neurology saw patient requested echo with bubble study. Images obtained but no reading available. Patient is alert and oriented. She is feeling much better after PT did vestibular maneuvers further supporting diagnosis benign positional vertigo. MRI was negative for stroke. CTA does show fibromuscular dysplasia involving the internal carotid arteries and left vertebral artery. Patient will have to see vascular Neurology. I discussed with primary care provider who stated to have patient contact his office on discharge and they will process a referral through insurance. At this time all symptoms are relieved and patient is just pending remainder of test results. Review of Systems Review of Systems: All systems reviewed & are unremarkable except as noted in HPI and below Exam Narrative: GENERAL: Well-appearing, well-nourished, and in no acute distress. HEAD: Normocephalic, atraumatic. ENT:? Mucous membranes moist. CHEST: Clear to auscultation.? No respiratory distress. HEART: Regular rate and rhythm. ? Normal peripheral pulses. ABDOMEN: Soft, nontender, nondistended. EXTREMITIES: Normal range of motion. No peripheral edema. SKIN: Warm dry normal color NEURO: Alert and oriented x3. PSYCH: Normal mood and affect Objective Data Vital Signs Vital Signs: Vital Signs - 24 hr 01/03/24 19:32 01/03/24 19:45 01/03/24 19:45 Temperature 36.6 C Pulse Rate 63 63 Respiratory Rate 16 Blood Pressure 136/88 119/59 L 119/59 L Pulse Oximetry 97 Oxygen Delivery 01/03/24 19:47 01/03/24 19:49 01/03/24 23:46 Temperature 36.8 C Pulse Rate 62 69 76 Respiratory Rate 16 Blood Pressure 130/70 128/77 108/62 Pulse Oximetry 96 Oxygen Delivery 01/03/24 20:00 01/04/24 00:00 01/04/24 04:00 Temperature Pulse Rate 67 63 64 Respiratory Rate Blood Pressure Pulse Oximetry Oxygen Delivery 01/04/24 04:08 01/04/24 08:00 01/04/24 08:45 Temperature 36.5 C 36.9 C Pulse Rate 64 65 Respiratory Rate 16 16 Blood Pressure 122/88 113/64 Pulse Oximetry 94 99 Oxygen Delivery Room Air Intake/Output Intake/Output: Intake & Output 01/01/24 01/02/24 01/03/24 01/04/24 23:59 23:59 23:59 23:59 Intake Total 1220 200 Balance 1220 200 Meds/Results Medications: Active Medications Generic Name Dose Route Start Last Admin Trade Name Freq PRN Reason Stop Dose Admin Acetaminophen 650 mg 01/03/24 14:56 01/04/24 08:45 Acetaminophen 325
[2024-01-04] MEDS: ZOLPIDEM TARTRATE (*CRX) 5 MG TABLET 10 MG PO (21:39)
[2024-01-04] MEDS: ASPIRIN 81 MG ENTERIC TABLET PO (21:40)
[2024-01-04] MEDS: MELOXICAM 7.5 MG TABLET 15 MG PO (21:40)
[2024-01-04] MEDS: ATORVASTATIN 20 MG TABLET PO (21:40)
[2024-01-04] MEDS: FENOFIBRATE 160 MG TABLET PO (21:40)
[2024-01-05] VITALS: PULSE 66
[2024-01-05 04:00] VITALS: PULSE 61
[2024-01-05 05:48] VITALS: BP 105/60; PULSE 70; RESP 16; TEMP 36.7; O2SAT 90
[2024-01-05 07:01] LABS: Basophils Percent Auto 0.7 % (0.2-1.2); Eosinophils Absolute Auto 0.5 K/mm3 (0-0.3); Eosinophils Percent Auto 7.3 % (0-4.4); Hematocrit 33.7 % (37.0-47.0); Hemoglobin 10.8 g/dL (12.0-15.0); Immature Granulocyte Absolute 0.01 K/mm3 (0.00-0.031); Immature Granulocyte Percent A 0.2 % (0-0.5); Lymphocytes Absolute Auto 1.95 K/mm3 (0.9-3.2); Lymphocytes Percent Auto 31.8 % (18.3-44.2); Mean Corpuscular Hemoglobin 28.8 pg (26-34); Mean Corpuscular Volume 89.9 fl (80-100); Mean Platelet Volume 10.7 fl (7.4-10.4); Monocytes Absolute Auto 0.5 K/mm3 (0.1-0.6); Monocytes Percent Auto 7.7 % (2.6-8.5); Neutrophils Absolute Auto 3.2 K/mm3 (1.3-6.7); Neutrophils Percent Auto 52.3 % (45.5-73.1); Platelet Count Result 312 k/mm3 (150-375); Red Blood Count 3.75 M/mm3 (4.2-5.4); Red Cell Distribution Width 13.7 % (11.5-14.5); White Blood Count 6.1 K/mm3 (4.5-10.0)
[2024-01-05 07:12] LABS: Alanine Aminotransferase 18 U/L (6-35); Albumin Level 3.7 g/dL (3.5-5.1); Alkaline Phosphatase 48 U/L (38-126); Anion Gap 5 mmol/L (8-16); Aspartate Amino Transferase 22 U/L (14-36); Bilirubin,Total 0.5 mg/dL (0.2-1.3); Blood Urea Nitrogen 20 mg/dL (7-17); Calcium 9.1 mg/dL (8.4-10.2); Carbon Dioxide 26 mmol/L (22-30); Chloride 109 mmol/L (98-107); Estimated CRCL calculation 45 ml/min; Estimated Glomerular Filt Rate 55; Glucose 105 mg/dL (65-110); Potassium 3.7 mmol/L (3.4-5.0); Sodium 140 mmol/L (137-145)
[2024-01-05 08:00] VITALS: BP 114/81; PULSE 81; RESP 16; TEMP 36.3; O2SAT 95
[2024-01-05] MEDS: CYANOCOBALAMIN 1,000 MCG TABLET 1000 MCG PO (09:39)
[2024-01-05 10:19] VITALS: BP 103/56; BP 119/69
== END 2024-01-05 11:15 | disposition home or self-care (01) ==
LOC: ANHED 10:25 → ANH3MEDSUR 01-04 08:31
PROVIDERS: Nurse Practitioner; Physician Assistant; Admitting Provider Internal Medicine; Emergency Provider Student in an Organized Health Care Education/Training Program; PCP Family Medicine Adolescent Medicine; Visit Provider Internal Medicine
DX: R42 Dizziness and giddiness (principal); R20.2 Paresthesia of skin; I77.3 Arterial fibromuscular dysplasia; E78.2 Mixed hyperlipidemia; E53.8 Deficiency of other specified B group vitamins; I10 Essential (primary) hypertension; K76.0 Fatty (change of) liver, not elsewhere classified; F41.9 Anxiety disorder, unspecified; R00.1 Bradycardia, unspecified; Z20.822 Contact with and (suspected) exposure to COVID-19; J98.11 Atelectasis; Z87.891 Personal history of nicotine dependence; Z79.82 Long term (current) use of aspirin; Z79.52 Long term (current) use of systemic steroids; Z82.49 Family history of ischemic heart disease and other diseases of the circulatory system; Z83.438 Family history of other disorder of lipoprotein metabolism and other lipidemia
CPT/HCPCS: 36415; 70496; 70498; 70553; 71046; 80048; 80053; 80061; 81001; 82607; 83735; 84484; 85025; 85027; 85610; 85730; 87637; 93005; 93306; 96361; 96374; 96375; 97112; 97161; 99285; A9270; A9577; G0378; J2405; J3420; J7030; Q9967